=== PATIENT | male | born 1985 | race Caucasian/White ===

== ENCOUNTER 2019-07-24 18:16 | Emergency (ER) | payer OTHER ==
[~2019-07-24] VITALS: Ht 170.2 cm; Wt 90.7 kg
--- NOTE | 2019-07-24 19:34 | NUR ---
EMT at bedside for application ulnar gutter splint to rt hand w/ ankle stirrup lt ankle.
--- NOTE | 2019-07-24 19:42 | NUR ---
Pt medically cleared and ok to book by CHARISSA Bush. Pt discharged to [facility] custody in stable condition w/ resp even and unlabored, no acute distress noted. Pt given discharge papers along w/ discharge instructions. Patient verbalized understanding of instructions.
[2019-07-24 19:53] VITALS: BP 68/135
== END 2019-07-24 19:55 | disposition home or self-care (01) ==
LOC: ER 18:23
DX: S62.324A Displaced fracture of shaft of fourth metacarpal bone, right hand, initial encounter for closed fracture (principal); M25.572 Pain in left ankle and joints of left foot; F17.200 Nicotine dependence, unspecified, uncomplicated; Y08.89XA Assault by other specified means, initial encounter; Y93.89 Activity, other specified; Y92.89 Other specified places as the place of occurrence of the external cause; Y99.8 Other external cause status
CPT/HCPCS: 73130-TC; 73610-TC; 73630-TC